=== PATIENT | female | born 1975 | race Caucasian/White ===

== ENCOUNTER 2016-06-30 17:17 | Emergency (ER) | payer BC, OTHER ==
[2016-06-30 18:29] VITALS: TEMP 98.7; BMI 24.7
[2016-06-30] MEDS ORDERED: KETOROLAC TROMETHAMINE 10 MG TAB PO ONE (20:45)
[2016-06-30] MEDS ORDERED: CIPROFLOXACIN HCL 500 MG TAB PO ONE (20:45)
--- NOTE | 2016-06-30 20:46 | EDPRACDOC ---
- General Information Chief Complaint: Female Urogenital Problems Stated Complaint: URINARY SYMPTOMS Time Seen by Provider: 06/30/16 20:40 Information Source: Patient Mode Of Arrival: Car Home Medications: Home Medications Ketorolac Tromethamine [Toradol] 10 mg PO Q6H PRN #20 tab 06/30/16 Metronidazole [Flagyl] 500 mg PO TID #30 tab 06/30/16 Allergies/Adverse Reactions: Allergies Allergy/AdvReac Type Severity Reaction Status Date / Time No Known Allergies Allergy Verified 06/30/16 20:46 - History of Present Illness HPI: PATIENT PRESENTS C/O DYSURIA AND FLANK PAIN FOR DAYS. PAIN WORSE WITH URINATION. NO VAGINAL DISCHARGE. NO FEVER. NO N/V Onset: 2 WEEKS Urinary Pain Location: Reports: Suprapubic, Right Flank, Left Flank Symptom Onset: Reports: Gradual Pain Severity: Mild Pain Quality: Reports: Aching : No Oral Intake: Normal Urinary Output: Normal Associated Signs and Symptoms: Reports: Abdominal Pain, Flank Pain, Nausea. Denies: Vomiting, Vaginal Discharge, Vaginal Bleeding, Vaginal Itching ED Past Medical History - History Reviewed Yes Nurses notes reviewed and agree except as marked Travel Outside of [place] in the Last 3 Months?: No - Patient Medical History Surgical History: Reports: No Significant History - Social Medical History ETOH: None Substance Abuse: None Lives With: Family Lives In: Home EDM Review of Systems - Review of Systems ROS Negative Except as Marked: Yes All systems reviewed and were negative except as marked Constitutional: No Symptoms Reported. negative: Fever, Chills, Weakness, Fatigue, Loss of Appetite Eyes: No Symptoms Reported. negative: Redness, Blurred Vision, Double Vision, Discharge, Pain, Light Sensitive, Photophobia Ears: No Symptoms Reported. negative: Pain, Hearing Loss, Drainage, Ear Pulling Throat: No Symptoms Reported. negative: Pain, Swelling Nose: No Symptoms Reported. negative: Congestion, Bleeding, Discharge, Injection, Swelling, Deformity, Ecchymosis, Tender, Abrasion, Laceration Mouth: No Symptoms Reported. negative: Pain, Drooling Respiratory: No Symptoms Reported. negative: Cough, Brassy Cough, Barky Cough, Shortness of Breath, Wheezing, Hemoptysis Cardiovascular: No Symptoms Reported. negative: Chest Pain, Palpitations, Syncope, Edema, Orthopnea, PND, Skin Mottling, Cyanosis Gastrointestinal: Nausea, Pain. negative: Constipation, Diarrhea, Formula Intolerance, Melena Genitourinary: Dysuria. negative: Bleeding, Discharge, Frequency, Hematuria, , Testicular Pain Neurological: No Symptoms Reported. negative: Headache, Dizziness, Seizure, Numbness, Weakness, Speech Difficulty, Gait Difficulty Musculoskeletal: No Symptoms Reported. negative: Neck, Chestwall, Ribs, Back, Shoulder, Arm, Elbow, Forearm, Wrist, Hand, Pelvis, Hip, Femur, Knee, Leg, Ankle , Foot Integumentary: No Symptoms Reported. negative: Itching, Rash, Bruising, Wound Allergic/Immunologic: No Symptoms Reported. negative: Hives, Itching Hematologic: No Symptoms Reported. negative: Lymphadenopathy, Easy Bruising, Easy Bleeding Endocrine: No Symptoms Reported. negative: Weight Gain, Weight Loss Psychiatric: No Symptoms Reported. negative: Anxiety, Depression, Hallucinations, Insomnia, Suicidal - Physical Exam Constitutional: Alert (Awake), No apparent distress Oriented to: Time, Person, Place Last recorded Vital Signs: Last Vital Signs Temp 98.7 F 06/30/16 18:25 Pulse 90 06/30/16 18:25 Resp 16 06/30/16 18:25 BP 117/59 L 06/30/16 18:25 Pulse Ox 96 06/30/16 18:25 Oxygen Pulse Oxygen Saturation 96 O2 Device Room Air Oxygen Flow Rate Fraction of Inspired Oxygen ( FIO2) - HEENT Head: Normal ( normocephalic) Eye Exam: Normal (PERRL, EOMI, Sclera white) Oropharynx: Normal (Pharynx:Moist without exudate,Gums-no swelling) Tympanic Membrane: Normal ENT EAC: Normal TMJ: Normal Nose: No Symptoms Reported (septum midline) Neck: Normal (FROM, trachea at midline) - Respiratory/Cardiovascular Respiratory: Normal - CTA (BBS clear to auscultation without adventitious sounds ) Cardiovascular: Normal (RRR without murmur, gallop or rub) - GI Auscultation: Normal (NABS) Palpation: Normal (Soft,No rebound or guarding, non distended) Tenderness: Non tender Turner's Sign: Negative - Musculoskeletal Back: Normal (Non-Tender) Extremities: Normal (Normal tone, Pulses 2+ No cyanosis or edema, FROM) - Integumentary Skin: Normal, Warm, Dry Lymphatics: Normal (no adenopathy) - Neurologic Memory Impaired: Normal Motor Function: Normal (Normal tone, Pulses 2+ No cyanosis or edema, FROM) Cranial Nerve: Normal (CN II-X11 intact sensation, strength 5/5) Cerebellar: Normal Mood Description: Normal Perception: Normal Decision Time to Discharge: 22:30 - Departure Yes I personally saw and evaluated the patient. Disposition: Home Condition: Good Final Diagnosis: Bacterial vaginosis Instructions: Bacterial Vaginosis (ED) Education/Counseling Given To: Patient Education/Counseling Given Regarding: Diagnosis, Treatment, Prognosis, Follow Up Prescriptions: Ketorolac Tromethamine [Toradol] 10 mg PO Q6H PRN #20 tab PRN Reason: Pain Metronidazole [Flagyl] 500 mg PO TID #30 tab
[2016-06-30 21:02] LABS: LEUKOCYTES/URINE NEG (NEGATIVE); NITRITE/URINE NEG (NEGATIVE); RBC/URINE 0-2 (0-5); URINE OCCULT BLOOD 1+ (NEG/TRACE)
--- NOTE | 2016-06-30 22:02 | DIRPT ---
CLINICAL DATA: 40-year-old female with left-sided flank pain, dysuria and brown colored urine for the past 2 weeks. Low-grade fever intermittently. EXAM: CT ABDOMEN AND PELVIS WITHOUT CONTRAST TECHNIQUE: Multidetector CT imaging of the abdomen and pelvis was performed following the standard protocol without IV contrast. COMPARISON: No priors. FINDINGS: Lower chest: Unremarkable. Hepatobiliary: No definite cystic or solid hepatic lesions are identified in the liver on today's noncontrast CT examination. The unenhanced appearance of the gallbladder is normal. Pancreas: No pancreatic mass or peripancreatic inflammatory changes on today's noncontrast CT examination. Spleen: Unremarkable. Adrenals/Urinary Tract: There are no abnormal calcifications within the collecting system of either kidney, along the course of either ureter, or within the lumen of the urinary bladder. No hydroureteronephrosis or perinephric stranding to suggest urinary tract obstruction at this time. The unenhanced appearance of the kidneys is unremarkable bilaterally. Unenhanced appearance of the urinary bladder is normal. Bilateral adrenal glands are normal in appearance. Stomach/Bowel: Unenhanced appearance of the stomach is normal. No pathologic dilatation of small bowel or colon. Normal appendix. Vascular/Lymphatic: No significant atherosclerotic calcifications or definite aneurysm identified in the abdominal or pelvic vasculature on today's noncontrast CT examination. No lymphadenopathy noted in the abdomen or pelvis. Reproductive: Retroverted uterus. Ovaries are unremarkable in appearance. Other: No significant volume of ascites. No pneumoperitoneum. Musculoskeletal: There are no aggressive appearing lytic or blastic lesions noted in the visualized portions of the skeleton. IMPRESSION: 1. No acute findings in the abdomen or pelvis. Specifically, no urinary tract calculi no findings of urinary tract obstruction are noted at this time. 2. Normal appendix. Electronically Signed By: Jonas Gallego M.D. On: 06/30/2016 21:59
[2016-06-30] MEDS ORDERED: METRONIDAZOLE 500 MG TAB PO ONE (22:30)
[2016-06-30 22:44] VITALS: BP 117/51; PULSE 69
[2016-07-02 14:38] LABS: CHLAMY BY NUCLEIC ACID AMP Negative (Negative)
[2016-07-02 16:16] LABS: GC BY NUCLEIC ACID AMP Negative (Negative)
== END 2016-06-30 22:44 | disposition home or self-care (01) ==
LOC: ED 17:17
DX: N76.0 Acute vaginitis (principal); B96.89 Other specified bacterial agents as the cause of diseases classified elsewhere; R10.9 Unspecified abdominal pain
CPT/HCPCS: 74176; 81001; 81025; 87210; 87220; 87491; 87591; 99284; J3490